=== PATIENT | male | born 2000 | race African-American/Black ===

== ENCOUNTER 2019-03-30 15:06 | Emergency (ER) | payer OTHER ==
[~2019-03-30] VITALS: Ht 177.8 cm; Wt 68.0 kg
[~2019-03-30 15:06] MED LIST: IBUPROFEN 600600 M1 PO; NORCO 5-325 TA1 EAC1 PO; NORFLEX100 MG PO; SENNA-DOCUSATE1 EAC1 PO
[2019-03-30 15:35] VITALS: BP 112/62
== END 2019-03-30 15:34 | disposition home or self-care (01) ==
LOC: ER 15:06
DX: S01.01XD Laceration without foreign body of scalp, subsequent encounter (principal); X58.XXXD Exposure to other specified factors, subsequent encounter